=== PATIENT | male | born 1995 | race Caucasian/White ===

== ENCOUNTER 2016-11-14 14:27 | Inpatient (IN) | payer MEDICAID, OTHER ==
[~2016-11-14] VITALS: Ht 170.2 cm; Wt 74.6 kg
[2016-11-14 16:21] LABS: ADD SCAN DIFF NO
[2016-11-14 16:23] LABS: ABNORMAL IP MESSAGE 1; BASOPHIL # 0.1 10^3/ul (0.0-0.1); BASOPHILS % 0.2 % (0.0-2.0); EOSINOPHILS % 0.1 % (0.0-7.0); HEMATOCRIT 38.3 % (42.0-52.0); HEMOGLOBIN 12.9 g/dl (14.0-18.0); LYMPHOCYTES # 1.3 10^3/ul (0.8-2.9); LYMPHOCYTES % 5.6 % (15.0-51.0); MEAN CORPUSCULAR HEMOGLOBIN 28.2 pg (29.0-33.0); MEAN CORPUSCULAR HGB CONC 33.7 g/dl (32.0-37.0); MEAN CORPUSCULAR VOLUME 83.6 fl (82.0-101.0); MEAN PLATELET VOLUME 9.2 fl (7.4-10.4); MONOCYTE # 2.1 10^3/ul (0.3-0.9); MONOCYTES % 9.5 % (0.0-11.0); NEUTROPHIL # 18.9 10^3/ul (1.6-7.5); NEUTROPHILS % 83.8 % (39.0-77.0); PLATELET COUNT 489 10^3/UL (140-415); RED BLOOD COUNT 4.58 10^6/ul (4.70-6.10); RED CELL DISTRIBUTION WIDTH 12.3 % (11.5-14.5); WHITE BLOOD COUNT 22.6 10^3/ul (4.8-10.8)
[2016-11-14 16:28] LABS: ADD UMIC YES; URINE BILIRUBIN (Dip) 2+ (NEGATIVE); URINE BLOOD (Dip) 2+ (NEGATIVE); URINE GLUCOSE (Dip) NEGATIVE (NEGATIVE); URINE KETONES (Dip) TRACE (NEGATIVE); URINE LEUKOCYTE ESTERASE (Dip) NEGATIVE (NEGATIVE); URINE NITRITE (Dip) NEGATIVE (NEGATIVE); URINE TOTAL PROTEIN (Dip) 1+ (NEGATIVE); URINE UROBILINOGEN (Dip) >8.0 E.U./dL (0.1-1.0)
[2016-11-14 16:39] LABS: ALBUMIN 3.8 g/dl (3.3-4.9); ALBUMIN/GLOBULIN RATIO 0.7; BILIRUBIN,INDIRECT 0.3 mg/dl (0-1.1); BILIRUBIN,TOTAL 0.3 mg/dl (0.2-1.3); CALCIUM 9.5 mg/dl (8.4-10.2); CREATININE 0.73 mg/dl (0.61-1.24); POTASSIUM 4.3 mmol/L (3.5-5.1); TOTAL PROTEIN 9.2 g/dl (6.1-8.1)
--- NOTE | 2016-11-14 16:43 | RADRPT ---
PROCEDURE: CT Brain without contrast. CLINICAL INDICATION: Pain, headache TECHNIQUE: Routine CT scan of the brain was performed on a high resolution multi detector scanner without intravenous contrast. One or more of the following dose reduction techniques were used: Auto mated exposure control; Adjustment of the mA and/or kV according to patient size; Use of iterative r econstruction technique. CTDI = 44 mGy. DLP = 630 mGy-cm. COMPARISON: No prior relevant examinations are available for comparison. FINDINGS: Hemorrhage: No evidence of intracranial hemorrhage. Acute ischemic changes: No evidence of acute ischemic changes. Mass effect/Midline shift: None. Parenchymal volume: Within normal limits for age. Ventricular system: Concordant with parenchymal volume. Chronic changes: Parenchymal attenuation is within normal limits. Extracranial soft tissues: Unremarkable. Calvarium: No fractures. Paranasal sinuses: Near complete opacification of the left frontal sinus. Complete opacification of the right frontal sinus. Moderate opacification of bilateral ethmoid air cells. Maxillary sinuses not significantly within the field of view. Mastoid air cells: Visualized mastoid air cells are clear. IMPRESSION: No acute intracranial abnormalities. Normal appearance the brain parenchyma. Opacification of the visualized paranasal sinuses suggestive of sinusitis. RPTAT: AADD .Gianni Jaffe MD, Date Time Electronically viewed and signed by .Gianni Jaffe MD, on 11/14/2016 16:42 .B/
[2016-11-14 16:47] LABS: URINE COLOR AMBER (YELLOW)
[2016-11-14 16:49] LABS: BACTERIA,URINE FEW; ICTOTEST POSITIVE (NEGATIVE); MUCUS,URINE MODERATE; TRANSITIONAL EPI CELLS,URINE FEW
[2016-11-14 16:56] LABS: T3 UPTAKE 43.5 % (23.5-40.5)
[2016-11-14] MEDS ORDERED: IOHEXOL 300MG/ML 150 ML BTL ONE (17:07)
[2016-11-14] MEDS ORDERED: SOD CHLORIDE 0.9% 100 ML ONE (17:07)
[2016-11-14 17:10] LABS: THYROID STIMULATING HORMONE 1.32 MIU/L (0.465-4.680)
[2016-11-14 17:51] LABS: C-REACTIVE PROTEIN 33.8 mg/dl (0.0-0.9)
--- NOTE | 2016-11-14 18:04 | RADRPT ---
PROCEDURE: XR Chest. CLINICAL INDICATION: Pain TECHNIQUE: Single frontal chest x-ray. COMPARISON: None. FINDINGS: The lungs are clear. No focal opacification is seen. The cardiomediastinal silhouette is unremarka ble. The osseous structures are unremarkable. There is an artifact overlapping the left mid parasp inous space. IMPRESSION: 1. There is no acute cardiopulmonary process. RPTAT: HMJB .Glen Brooks MD, MD Date Time Electronically viewed and signed by .Glen Brooks MD, on 11/14/2016 18:04 .B/
--- NOTE | 2016-11-14 18:29 | RADRPT ---
PROCEDURE: CT Chest, Abdomen and Pelvis with contrast. CLINICAL INDICATION: Edema. TECHNIQUE: CT scan of the chest, abdomen, and pelvis with contrast was performed following the unc omplicated intravenous administration of 90 cc of Omnipaque 300 intravenous contrast. Coronal and s agittal reformatted images were obtained from the axial source images. Images were reviewed on a hig h-resolution PACS workstation. CTDI 6 mGy, DLP 416 mGy-cm One or more of the following dose reduction techniques were used: Automated exposure control Adjustment of the mA and/or kV according to patient size. Use of iterative reconstruction technique. COMPARISON: Chest radiograph of the same day FINDINGS: CT chest: The lungs are clear. There is no focal consolidation, pleural effusion, or pneumothorax. The centr al tracheobronchial tree is clear. The visualized thyroid is unremarkable. There is no mediastinal, hilar, or axillary lymphadenopathy . Mildly prominent thymic tissue is visualized within the anterior mediastinum. The aorta and its branches are unremarkable in appearance. The central pulmonary arteries are unrem arkable. The heart size is within normal limits. There is no pericardial effusion. The axillary regions, subpectoral regions, and supraclavicular regions are all unremarkable. A few m ildly prominent lymph nodes are visualized within the bilateral axilla although contain a central fa tty hilum. CT abdomen/pelvis: The right lobe of liver measures about 20.6 cm cranial-caudal, which is prominent. The portal, supe rior mesenteric, splenic veins are patent. The gallbladder is unremarkable. There is no intrahepat ic or extrahepatic biliary ductal dilatation. The spleen, adrenal glands, and pancreas are unremarkable. The bilateral kidneys are unremarkable. There is no nephroureterolithiasis or hydronephrosis. The ureters are normal in course and caliber. The esophagus is unremarkable. The stomach is mildly distended and grossly unremarkable. The small bowel loops are normal in caliber, without evidence for small bowel obstruction. A portion of the sigmoid colon is decompressed. There is no bowel wall thickening or pneumatosis. The appendix may be visualized on coronal image 32 and axial image 211 and unremarkable. There is no free intraperit meza fluid or pneumoperitoneum. The aorta and its branches are unremarkable. There is no mesenteric, retroperitoneal, or pelvic lymphadenopathy. The bladder is mildly distended and grossly unremarkable. The prostate and seminal vesicles are unr emarkable. There is no free fluid within the pelvis. Small subcentimeter inguinal lymph nodes are v isualized. The abdominal and pelvic ramachandran are unremarkable. There are no acute fractures. A few Schmorl's nodes are present within the jvc-ty-jglza thoracic sp ine. RPTAT: HTLT IMPRESSION: 1. Mild to moderate hepatomegaly. 2. Few small Schmorl's nodes within the dgt-ca-xbhag thoracic spine. 3. No discrete mass, significant lymphadenopathy, or a focal acute inflammatory process. No ascite s. .Priscilla Pryor MD, MD Date Time Electronically viewed and signed by .Priscilla Pryor MD, on 11/14/2016 18:29 .T/
[2016-11-14] MEDS ORDERED: SOD CHLORIDE 0.9% 1,000 ML IV ONE ×2 (18:54→19:30)
[2016-11-14] MEDS ORDERED: VANCOMYCIN 1 GM (PMX) 250 ML IVPB SCH (19:00)
[2016-11-14] MEDS ORDERED: CEFTRIAXONE 1 GM/50 ML (PMX) 50 ML IVPB ONE (19:00)
[2016-11-14] MEDS ORDERED: ACETAMINOPHEN 325 MG TAB PO ONE (19:00)
--- NOTE | 2016-11-14 19:44 | ERA ---
ER Documentation Chief Complaint Date/Time DATE: 11/14/16 TIME: 19:37 Chief Complaint pt bib cousin with c/o swollen hands, unk cause HPI 21-year-old male presents with cousin for increasingly swollen hands. There is been no recent trauma to the hands and no known insect bite but the hands have been increasingly swelling have been hot. Symptoms began ROS All systems reviewed and are negative except as per history of present illness. Allergies Allergies: Coded Allergies: No Known Allergies (Verified Allergy, Unknown, 11/14/16) PMhx/Soc Medical and Surgical Hx: pt denies Surgical Hx Hx Cardiac Disorders: Yes (cardiac problems) Hx Psychiatric Problems: No Hx Miscellaneous Medical Probl: No Hx Alcohol Use: No Hx Substance Use: No Hx Tobacco Use: No Smoking Status: Never smoker Physical Exam Vitals Vital Signs Date Time Temp Pulse Resp B/P Pulse Ox O2 Delivery O2 Flow Rate FiO2 11/14/16 19:18 101.0 114 19 139/101 90 Room Air 11/14/16 18:40 104.0 11/14/16 14:31 98.3 64 16 134/78 98 Physical Exam Const: [] Head: Atraumatic Eyes: Normal Conjunctiva ENT: Normal External Ears, Nose and Mouth. Neck: Full range of motion..~ No meningismus. Resp: Clear to auscultation bilaterally Cardio: Regular rate and rhythm, no murmurs Abd: Soft, non tender, non distended. Normal bowel sounds Skin: No petechiae or rashes Back: No midline or flank tenderness Ext: No cyanosis, or edema Neur: Awake and alert Psych: Normal Mood and Affect Result Diagram: 11/14/16 1601 11/14/16 1601 Results 24 hrs Laboratory Tests Test 11/14/16 16:01 11/14/16 16:07 11/14/16 17:06 White Blood Count 22.610^3/ul Red Blood Count 4.5810^6/ul Hemoglobin 12.9g/dl Hematocrit 38.3% Mean Corpuscular Volume 83.6fl Mean Corpuscular Hemoglobin 28.2pg Mean Corpuscular Hemoglobin Concent 33.7g/dl Red Cell Distribution Width 12.3% Platelet Count 44466^3/UL Mean Platelet Volume 9.2fl Neutrophils % 83.8% Lymphocytes % 5.6% Monocytes % 9.5% Eosinophils % 0.1% Basophils % 0.2% Nucleated Red Blood Cells % 0.0/100WBC Neutrophils # 18.910^3/ul Lymphocytes # 1.310^3/ul Monocytes # 2.110^3/ul Eosinophils # 0.010^3/ul Basophils # 0.110^3/ul Nucleated Red Blood Cells # 0.010^3/ul Erythrocyte Sedimentation Rate 110mm/Hr Sodium Level 138mmol/L Potassium Level 4.3mmol/L Chloride Level 96mmol/L Carbon Dioxide Level 27mmol/L Anion Gap 19 Blood Urea Nitrogen 13mg/dl Creatinine 0.73mg/dl Glucose Level 124mg/dl Calcium Level 9.5mg/dl Total Bilirubin 0.3mg/dl Direct Bilirubin 0.00mg/dl Indirect Bilirubin 0.3mg/dl Aspartate Amino Transf (AST/SGOT) 27IU/L Alanine Aminotransferase (ALT/SGPT) 52IU/L Alkaline Phosphatase 205IU/L C-Reactive Protein 33.8mg/dl Total Protein 9.2g/dl Albumin 3.8g/dl Globulin 5.40g/dl Albumin/Globulin Ratio 0.70 Lipase 32U/L Thyroid Stimulating Hormone (TSH) 1.320MIU/L Free Thyroxine Index 4.35ug/ml Thyroxine (T4) 10.0ug/dl Triiodothyronine (T3) Uptake 43.5% Monoscreen Negative Urine Color EVA Urine Clarity SLIGHTLY CLOUDY Urine pH 5.5 Urine Specific [place] 1.020 Urine Ketones TRACE Urine Nitrite NEGATIVE Urine Bilirubin 2+ Urine Ictotest POSITIVE Urine Urobilinogen >8.0 E.U./dL Urine Leukocyte Esterase NEGATIVE Urine Microscopic RBC 10-25/HPF Urine Microscopic WBC 0-2/HPF Urine Transitional Epithelial Cells FEW Urine Bacteria FEW Urine Mucus MODERATE Urine Hemoglobin 2+ Urine Glucose NEGATIVE% Urine Total Protein 1+ Lactic Acid Level 1.1mmol/L Current Medications Medications (Trade) Dose Ordered Sig/Regi Route PRN Reason Start Time Stop Time Status Last Admin Dose Admin IV Flush 10 ml 10 ml STK-MED ONCE .ROUTE 11/14/16 17:07 11/14/16 17:08 DC 11/14/16 17:37 Sodium Chloride (NS) 100 ml @ ud STK-MED ONCE .ROUTE 11/14/16 17:07 5/28/17 17:08 DC 11/14/16 17:37 Iohexol (Omnipaque 300mg/ ml) 150 ml STK-MED ONCE .ROUTE 11/14/16 17:07 11/14/16 17:08 DC 11/14/16 17:38 Acetaminophen 650 mg 650 mg ONCE ONCE PO 11/14/16 19:00 11/14/16 19:01 DC 11/14/16 18:47 Ceftriaxone Sodium 50 ml @ 100 mls/hr ONCE ONCE IVPB 11/14/16 19:00 11/14/16 19:29 DC 11/14/16 19:10 Vancomycin HCl 250 ml @ 125 mls/hr ONCE IVPB 11/14/16 19:00 11/14/16 20:59 DC 11/14/16 20:24 Sodium Chloride 1,000 ml @ 0 mls/hr Q0M ONCE IV 11/14/16 18:54 11/14/16 18:59 DC 11/14/16 19:10 Sodium Chloride (NS) 1,000 ml @ 1,000 mls/hr Q1H ONCE IV 11/14/16 19:30 11/14/16 20:29 DC 11/14/16 20:30 Procedures/MDM Sepsis secondary to bilateral hand cellulitis apparently. Patient also had an episode of desaturation. Sed rate is significantly elevated. Patient was given 2 L of normal saline to complete 36 kg of IV fluid. Diagnosis of sepsis was not made until the temperature was rechecked the patient had a fever. The first temperature was taken with the tympanic membrane which in my experience are unreliable. Patient also has a very highly elevated white count. Strangely , he is feeling very well. He has minimal pain and is not short of breath. Extensive workup was performed to look for other possible abnormalities because this is an atypical case. Patient is being admitted to Dr. lundberg. He requests that I call Dr. Fisher. I did call Dr. Fisher regarding bilateral hand cellulitis and agrees to be a consult on this patient. Critical care time: 35 minutes: This includes treatment of significant cellulitis with sepsis, very careful fluid administration, early antibiotic administration was diagnosis of sepsis have been made, multiple visits the patient's bedside to reassess status, discussion with labor delivery specialist, discussion with admitting doctor, chart review. This does not include any billable procedures. Left hand x-ray interpretation: Marked soft tissue swelling with evidence of psoriatic arthritis. No fracture dislocation. Right hand x-ray. Marked soft tissue swelling without evidence of fracture or dislocation Chest x-ray interpretation: I see no acute process, no infiltrates, no widened mediastinum, no pneumothorax, no fractures CT head interpretation: I see no acute process, no hemorrhage no mass-effect or midline shift no skull fractures CT abdomen pelvis interpretation: I see no acute process, no obstruction, no free air, no abnormal fat stranding, no fractures Departure Diagnosis: Primary Impression: Cellulitis of hand Additional Impressions: Sepsis Fever Leukocytosis Psoriatic arthritis Condition: Serious LOUISA MASTERSON DO November 14, 2016 19:44
[2016-11-14] MEDS ORDERED: ONDANSETRON 4 MG INJ IV PRN ×2 (20:00→22:00)
[2016-11-14] MEDS ORDERED: ACETAMINOPHEN 325 MG TAB PO PRN (20:00)
[2016-11-14 20:24] VITALS: TEMP 100
[2016-11-14 20:51] VITALS: PULSE 107
[2016-11-14 21:15] VITALS: BP 117/58; PULSE 101; RESP 20
--- NOTE | 2016-11-14 21:37 | RADRPT ---
PROCEDURE: X-ray left hand CLINICAL INDICATION: Swelling and sepsis. TECHNIQUE: 3 views left hand COMPARISON: None FINDINGS: Deformity at the third PIP joint with chronic remodelling at the base of the middle phalanx and dest ruction of the articular proximal third middle phalanx. Differential considerations include pencil i n cup deformity of psoriatic arthropathy. Remaining osseous structures are without acute fracture di slocation. There may be resorption of the tuft of the fourth finger of the left hand, although this is suboptim ally visualized. Evaluation of the fingers is limited secondary to flexion. Soft tissue swelling over the fingers, greater at the third finger. IMPRESSION: 1. Chronic changes at the base of the third proximal phalanx with widening, remodelling and destruc tion of the articular surface. 2. Findings are compatible with sequela of psoriatic arthropathy. RPTAT: [facility] Physician Thaddeus Date Time Electronically viewed and signed by Physician Thaddeus on 11/14/2016 21:36 RS/
--- NOTE | 2016-11-14 21:39 | RADRPT ---
PROCEDURE: X-ray right hand CLINICAL INDICATION: Swelling and sepsis. TECHNIQUE: 3 views right hand COMPARISON: None FINDINGS: No acute fracture dislocation. No evident lrykza-mz-wpe deformities or erosions seen in the left moya d. Soft tissue swelling over the proximal and mid second digit of the right hand. Digit swelling can b e associated with psoriatic arthropathy. IMPRESSION: 1. Soft tissue swelling over the proximal and mid second digit of the right hand. 2. No acute fracture. 3. No evident khmvja-yn-fuh deformity, as noted in the left hand. RPTAT: [facility] Physician Thaddeus Date Time Electronically viewed and signed by Physician Thaddeus on 11/14/2016 21:38 RS/
[2016-11-14 21:47] VITALS: Ht 170.2 cm; Wt 74.6 kg
[2016-11-14] MEDS ORDERED: VANCOMYCIN IV PER PHARMACY XX SCH (22:00)
[2016-11-14] MEDS ORDERED: morphine 4 MG/ML VIAL IV PRN (22:00)
[2016-11-14 23:00] LABS: URINE BILIRUBIN (Dip) 1+ (NEGATIVE); URINE BLOOD (Dip) 2+ (NEGATIVE); URINE COLOR DK. YELLOW (YELLOW); URINE GLUCOSE (Dip) NEGATIVE (NEGATIVE); URINE KETONES (Dip) NEGATIVE (NEGATIVE); URINE LEUKOCYTE ESTERASE (Dip) NEGATIVE (NEGATIVE); URINE NITRITE (Dip) NEGATIVE (NEGATIVE); URINE TOTAL PROTEIN (Dip) 1+ (NEGATIVE); URINE UROBILINOGEN (Dip) 4.0 E.U./dL (0.1-1.0)
[2016-11-14 23:05] LABS: ADD UMIC SL HAZY
[2016-11-14 23:09] LABS: ICTOTEST NEGATIVE (NEGATIVE)
[2016-11-14 23:11] LABS: BACTERIA,URINE RARE; SQUAMOUS EPITHELIAL CELL,UR RARE
[2016-11-14] MEDS: PIPER-TAZO 3.375 GM IV (PMX) 100 ML IVPB SCH (23:52)
[2016-11-15] VITALS (15 sets, daily range): BP systolic 102–137; BP diastolic 55–81; PULSE 88–130; RESP 16–21
[2016-11-15] MEDS: VANCOMYCIN 1 GM in NS 250 ML IVPB SCH ×2 (02:09→10:08)
[2016-11-15] MEDS: PIPER-TAZO 3.375 GM IV (PMX) 100 ML IVPB SCH ×2 (05:25→12:44)
--- NOTE | 2016-11-15 05:49 | HP ---
DATE OF ADMISSION: 11/14/2016 CHIEF COMPLAINT: Swollen hands and pain. HISTORY OF PRESENT ILLNESS: The patient is a 21-year-old male who is hard of hearing in both ears who presented to the emergency department with swollen hands. The swelling has been progressively getting worse over a a one year period and has been warm to touch. It has been itchy and as a result, he developed scars from scratching. He denied any trauma/injury to both hands or insect bites. He moved from [facility] to a year ago and this problem started [place] He speaks very limited urugu[place], but his cousin at bedside was translating. Cousin said he was taken to a clinic here once before, but said nothing was done. He also has bumps/papular lesions x 3 years on his lower extremities, which are itchy and somehow tender. He denied any chest pains, shortness of breath, fever, chills, nausea, vomiting, abdominal pain, or urinary symptoms. When he presented to the ER, blood pressure was 134/78, heart rate 64, respiratory rate 16, temperature 98.3, oxygen saturation 98% on room air. Within 4 hours, he was febrile with a temperature of 104 and tachycardic with a heart rate as high as 114. Labs show a WBC of 22.6, hemoglobin 12.9, platelet count 489. Alkaline phosphatase 205. C-reactive protein almost 34. ESR 110. X-ray of the hands shows soft tissue swelling over the proximal and mid second digits of the right hand and deformity of the third PIP joint with chronic remodeling at the base of the middle phalanx and destruction of the articular proximal third middle phalanx with widening, remodeling and destruction of the articular surface of the left hand, findings compatible with sequela of psoriatic arthropathy. Although suboptimally visualized, there may also be resorption of the tuft of the fourth finger of the left hand, but evaluation of the fingers was limited secondary to flexion. Chest x-ray: No acute process. Brain CT shows opacification of the visualized paranasal sinus suggestive of sinusitis. CT abdomen and pelvis was done which showed mild to moderate hepatomegaly, few small Schmorl's nodes within the mid to lower thoracic spine. Otherwise, no discrete mass, significant lymphadenopathy, or focal acute inflammatory process was seen, and no ascites. The patient received IV fluids and was given a dose of ceftriaxone while in the ER. REVIEW OF SYSTEMS: A 12-point review was performed and negative except as mentioned in HPI. PAST MEDICAL HISTORY: As per HPI. PAST SURGICAL HISTORY: Denies. SOCIAL HISTORY: Denies history of tobacco, alcohol, or illicit drug use. ALLERGIES: NO KNOWN DRUG ALLERGIES. HOME MEDICATIONS: None. PHYSICAL EXAMINATION: VITAL SIGNS: Blood pressure 117/58, heart rate 101, respiratory rate 20, temperature 99.3, oxygen saturation 100% on 2 liters. GENERAL: No acute distress, answering questions appropriately. HEENT: No obvious head deformity. Pupils are reactive to light. Extraocular muscles intact. CARDIOVASCULAR: Tachycardic, regular rhythm. LUNGS: Clear. ABDOMEN: Soft, nontender, nondistended. Positive bowel sounds. EXTREMITIES: No lower extremity edema. There is swelling of bilateral hands which are warm to touch. IMAGING: X-ray of hands, chest x-ray, CT abdomen and pelvis, and brain CT with results as mentioned in the HPI. IMPRESSION: 1. Bilateral hands swellings and cellulitis of unknown etiology. 2. Sepsis as evidenced by fever, leukocytosis, and tachycardia, secondary to above. 3. Elevated alkaline phosphatase, likely the sequela of his swollen hands with possible bone inflammatory process. PLAN: He will be placed on broad spectrum antibiotic. We will follow up on culture results given the presentation of sepsis. Dr. Fisher, the on-call ortho surgeon, has been consulted by the ER physician, and we will follow up on his recommendation. I will leave the decision up to him about obtaining additional imaging like MRI. He will provide pain medications as needed. The patient's etiology of his swollen hands could be from psoriatic arthropathy process, and as such, we may need to place a hematology consult. We will order SALOME, RF (rheumatoid factor), and anti-CCP. Additional workup based on clinical course. Dictated By: KANDICE GREER/LAURY Conf#: [id number] DID#: [id number] BARBIE
[2016-11-15] MEDS: ACETAMINOPHEN 325 MG TAB PO PRN ×2 (06:25→16:00)
[2016-11-15 07:01] LABS: ADD SCAN DIFF NO
[2016-11-15 07:13] LABS: ABNORMAL IP MESSAGE 1; BASOPHILS % 0.1 % (0.0-2.0); EOSINOPHILS # 0.1 10^3/ul (0.0-0.5); EOSINOPHILS % 0.4 % (0.0-7.0); HEMATOCRIT 36.4 % (42.0-52.0); LYMPHOCYTES % 5.2 % (15.0-51.0); MEAN CORPUSCULAR HEMOGLOBIN 27.9 pg (29.0-33.0); MEAN CORPUSCULAR VOLUME 84.7 fl (82.0-101.0); MEAN PLATELET VOLUME 8.8 fl (7.4-10.4); MONOCYTE # 1.6 10^3/ul (0.3-0.9); MONOCYTES % 8.1 % (0.0-11.0); NEUTROPHIL # 17.1 10^3/ul (1.6-7.5); NEUTROPHILS % 85.2 % (39.0-77.0); PLATELET COUNT 447 10^3/UL (140-415); RED CELL DISTRIBUTION WIDTH 12.7 % (11.5-14.5); WHITE BLOOD COUNT 20.1 10^3/ul (4.8-10.8)
[2016-11-15 07:36] LABS: ALBUMIN 3.3 g/dl (3.3-4.9); ALBUMIN/GLOBULIN RATIO 0.71; BILIRUBIN,INDIRECT 0.2 mg/dl (0-1.1); BILIRUBIN,TOTAL 0.2 mg/dl (0.2-1.3); CALCIUM 8.8 mg/dl (8.4-10.2); CREATININE 0.66 mg/dl (0.61-1.24); MAGNESIUM 1.9 mg/dl (1.7-2.5); PHOSPHORUS 3.7 mg/dl (2.5-4.9); POTASSIUM 3.9 mmol/L (3.5-5.1); TOTAL PROTEIN 7.9 g/dl (6.1-8.1)
--- NOTE | 2016-11-15 14:32 | PN ---
Date/Time of Note Date/Time of Note DATE: 11/15/16 TIME: 14:26 Assessment/Plan VTE Prophylaxis VTE Prophylaxis Intervention: heparin Lines/Catheters IV [facility] Peripheral IV Urinary Cath still in place: No Assessment/Plan Assessment/Plan 21 yo M with no known pmhx presents with several weeks of progresive bl finger/ hand joint pain and swelling. Imaging and clinical course suggestive of psoriatic arthritis v other rheumatologic condition. Pt with leukocytosis, suspect reactive. Pt also with low grade temp on admission which actually worsened with initiation of antimicrobials which is not consistent with a primarily infectious process PLAN rheum labs in process (CRP/SALOME/RF/CCP, ESR already returned elevated) rheum eval social work consult given pt does not currently have health insurance general diet S[facility] Subjective 24 Hr Interval Summary Free Text/Dictation Pt seen this afternoon with his family member at bedside who served as stereo map plotter operator. Pt reports hands have been swollen for several weeks, started with just right then left became involved as well. No pain when he holds his hands still Denies any visual changes, swelling or pain of other joints Exam/Review of Systems Vital Signs Vitals Vital Signs Date Time Temp Pulse Resp B/P Pulse Ox O2 Delivery O2 Flow Rate FiO2 11/15/16 12:18 88 11/15/16 11:39 98.5 20 123/80 100 11/15/16 08:00 Nasal Cannula 2.0 Intake and Output 11/14/16 11/14/16 11/15/16 15:00 23:00 07:00 Intake Total 1050 ml 950 ml Balance 1050 ml 950 ml Exam NAD, sitting up in bed MSK exam notabvle for sig mod swelling/sausage digit deformity of L hand fingers and mild swelling in R fingers, +tenosynovitis and DIPs/PIPs/MCPs bl. + tenosynovitis R elbow. None in left elbow. No rashes noted over elbow extensor surfaces. No erythema LEs with no tenosynovitis of toes/ankles/knees. +several 2 cm erythematous nodules scattered over LEs Results Result Diagram: 11/15/16 0635 11/15/16 0615 Results 24 hrs Laboratory Tests Test 11/14/16 16:01 11/14/16 16:07 11/14/16 17:06 11/14/16 21:55 White Blood Count 22.6 H Red Blood Count 4.58 L Hemoglobin 12.9 L Hematocrit 38.3 L Mean Corpuscular Volume 83.6 Mean Corpuscular Hemoglobin 28.2 L Mean Corpuscular Hemoglobin Concent 33.7 Red Cell Distribution Width 12.3 Platelet Count 489 H Mean Platelet Volume 9.2 Neutrophils % 83.8 H Lymphocytes % 5.6 L Monocytes % 9.5 Eosinophils % 0.1 Basophils % 0.2 Nucleated Red Blood Cells % 0.0 Neutrophils # 18.9 H Lymphocytes # 1.3 Monocytes # 2.1 H Eosinophils # 0.0 Basophils # 0.1 Nucleated Red Blood Cells # 0.0 Erythrocyte Sedimentation Rate 110 H Sodium Level 138 Potassium Level 4.3 Chloride Level 96 L Carbon Dioxide Level 27 Anion Gap 19 H Blood Urea Nitrogen 13 Creatinine 0.73 Glucose Level 124 Calcium Level 9.5 Total Bilirubin 0.3 Direct Bilirubin 0.00 Indirect Bilirubin 0.3 Aspartate Amino Transf (AST/SGOT) 27 Alanine Aminotransferase (ALT/SGPT) 52 Alkaline Phosphatase 205 H C-Reactive Protein 33.8 H Total Protein 9.2 H Albumin 3.8 Globulin 5.40 H Albumin/Globulin Ratio 0.70 Lipase 32 Thyroid Stimulating Hormone (TSH) 1.320 Free Thyroxine Index 4.35 H Thyroxine (T4) 10.0 Triiodothyronine (T3) Uptake 43.5 H Monoscreen Negative Urine Color EVA DK. YELLOW Urine Clarity SLIGHTLY CLOUDY CLEAR Urine pH 5.5 6.5 Urine Specific [place] 1.020 <=1.005 L Urine Ketones TRACE NEGATIVE Urine Nitrite NEGATIVE NEGATIVE Urine Bilirubin 2+ H 1+ H Urine Ictotest POSITIVE NEGATIVE Urine Urobilinogen >8.0 E.U./dL H 4.0 E.U./dL H Urine Leukocyte Esterase NEGATIVE NEGATIVE Urine Microscopic RBC 10-25 2-5 Urine Microscopic WBC 0-2 NONE SEEN Urine Transitional Epithelial Cells FEW Urine Bacteria FEW RARE Urine Mucus MODERATE Urine Hemoglobin 2+ H 2+ H Urine Glucose NEGATIVE NEGATIVE Urine Total Protein 1+ H 1+ H Lactic Acid Level 1.1 1.2 Urine Squamous Epithelial Cells RARE Test 11/15/16 00:45 11/15/16 06:15 11/15/16 06:35 Lactic Acid Level 1.0 Sodium Level 138 Potassium Level 3.9 Chloride Level 100 Carbon Dioxide Level 24 Anion Gap 18 H Blood Urea Nitrogen 10 Creatinine 0.66 Glucose Level 131 Calcium Level 8.8 Phosphorus Level 3.7 Magnesium Level 1.9 Total Bilirubin 0.2 Direct Bilirubin 0.00 Indirect Bilirubin 0.2 Aspartate Amino Transf (AST/SGOT) 30 Alanine Aminotransferase (ALT/SGPT) 47 Alkaline Phosphatase 190 H Total Protein 7.9 # Albumin 3.3 Globulin 4.60 H Albumin/Globulin Ratio 0.71 White Blood Count 20.1 H Red Blood Count 4.30 L Hemoglobin 12.0 L Hematocrit 36.4 L Mean Corpuscular Volume 84.7 Mean Corpuscular Hemoglobin 27.9 L Mean Corpuscular Hemoglobin Concent 33.0 Red Cell Distribution Width 12.7 Platelet Count 447 H Mean Platelet Volume 8.8 Neutrophils % 85.2 H Lymphocytes % 5.2 L Monocytes % 8.1 Eosinophils % 0.4 Basophils % 0.1 Nucleated Red Blood Cells % 0.0 Neutrophils # 17.1 H Lymphocytes # 1.0 Monocytes # 1.6 H Eosinophils # 0.1 Basophils # 0.0 Nucleated Red Blood Cells # 0.0 Medications Medications Current Medications Ondansetron HCl (Zofran Inj) 4 mg Q6H PRN IV NAUSEA AND/OR VOMITING; Start at 22:00 Acetaminophen (Tylenol Tab) 650 mg Q6H PRN PO PAIN AND OR ELEVATED TEMP Last administered on 11/15/16 06:25; Admin Dose 650 MG; Start 11/14/16 at 22:00 Morphine Sulfate (morphine) 3 mg Q4H PRN IV PAIN; Start 11/14/16 at 22:00 CAROLINA YANEZ MD November 15, 2016 14:32
--- NOTE | 2016-11-15 21:10 | CONS ---
DATE OF ADMISSION: 11/14/2016 DATE OF CONSULTATION: 11/15/2016 TYPE OF CONSULTATION: Orthopedic surgical. HISTORY OF PRESENT ILLNESS: The patient is a 21-year-old male, a resident of [place] who has been in [facility] for last 1 year. He was admitted on 11/14/2016 when he was brought into the emergency room comp laining of swelling involving both hands, especially involving fingers. He developed this swelling of the fingers, especially involving index finger and middle finger and ring finger, starting from a bout a month ago without any memorable trauma. According to available history, he was having itchin g, and because of itching, he was scratching excessively, and they felt that that might be the reaso n for his swelling according to the family members. There is also a history of having bump and papu lar lesion in his lower extremity in the past. There also was a history of pain involving the knee joint in the past. At the time of his admission, there was a considerable leukocytosis with a WBC c ount of 22.6 along with a temperature of 101.0, and C-reactive protein was high with 34, and sedimen tation rate was 110. PHYSICAL EXAMINATION: My examination revealed a diffuse swelling and thickness of fingers, especial ly index finger and middle finger and ring finger of both hands. Even though there was enlargement of his fingers, there were no signs of acute pyogenic process such as redness, acute tenderness or i ncreased warmth. He was able to move his fingers in spite of this thickening and enlargement. X-ra ys of the fingers, especially the left hand, showing chronic changes in the proximal interphalangeal joint of the 3rd finger with widening and remodeling of the proximal end of the middle phalanx with the distal end of the proximal phalanx inside the widened area, showing so-called hdbykf-yy-byi-cup finding. There was some thickening and hypertrophic changes of the skeletal structures, radiologic report mentioning findings compatible with sequela of psoriatic arthropathy. The x-rays of the rig ht hand also are showing similar changes with thickening of the phalanx similar to the left hand wit hout so-called xwunyf-ov-akk-cup findings. 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 No signs of acute pyogenic process at all. RECOMMENDATIONS FOR MANAGEMENT: 1. Consult ____. 2. He may need a referral to major medical center for higher level of care, and this can be done as an outpatient after his discharge from this facility. Dictated By: ALMITA VALERIO/LAURY Conf#: [id number] DID#: [id number]
[2016-11-15] MEDS: NAPROXEN 500 MG TAB PO SCH (21:18)
[2016-11-15] MEDS: HEPARIN 5,000 UNIT/0.5 ML VIAL SC SCH (21:19)
[2016-11-16] VITALS (7 sets, daily range): BP systolic 111–136; BP diastolic 66–67; PULSE 60–90; RESP 18–20
[2016-11-16] MEDS: HEPARIN 5,000 UNIT/0.5 ML VIAL SC SCH (06:11)
[2016-11-16] MEDS: NAPROXEN 500 MG TAB PO SCH (08:47)
--- NOTE | 2016-11-16 11:27 | PDOCDIS ---
Discharge Instructions CONDITION Patient Condition: Good HOME CARE INSTRUCTIONS: Diet Instructions: RegularSpecial Diet: REGULAR DIET ACTIVITY: Activity Restrictions: No Restrictions REFERRALS Other Referrals Please refer to the resources provided by the older adult social work specialist to get coordinated with medical care through [facility]. When you are able to see a new primary care physician, please ask for a referral to a combination presser/joint specialist. If your condition worsens, consider presenting to the ER at [facility] or [facility]. CAROLINA YANEZ MD November 16, 2016 11:27
[2016-11-16] MEDS ORDERED: NAPR-260 PO (11:30)
--- NOTE | 2016-11-16 11:40 | DS ---
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 X-ray left hand FINDINGS: Deformity at the third PIP joint with chronic remodelling at the base of the middle phalanx and destruction of the articular proximal third middle phalanx. Differential considerations include pencil in cup deformity of psoriatic arthropathy. Remaining osseous structures are without acute fracture dislocation. There may be resorption of the tuft of the fourth finger of the left hand, although this is suboptimally visualized. Evaluation of the fingers is limited secondary to flexion. Soft tissue swelling over the fingers, greater at the third finger. IMPRESSION: 1. Chronic changes at the base of the third proximal phalanx with widening, remodelling and destruction of the articular surface. 2. Findings are compatible with sequela of psoriatic arthropathy. PROCEDURE: X-ray right hand FINDINGS: No acute fracture dislocation. No evident lnwhrr-es-osj deformities or erosions seen in the left hand. Soft tissue swelling over the proximal and mid second digit of the right hand. Digit swelling can be associated with psoriatic arthropathy. IMPRESSION: 1. Soft tissue swelling over the proximal and mid second digit of the right hand. 2. No acute fracture. 3. No evident tdznwg-bu-tqq deformity, as noted in the left hand. Hx of Present Illness The patient is a 21-year-old male who is hard of hearing in both ears who presented to the emergency department with swollen hands. The swelling has been progressively getting worse over a a one year period and has been warm to touch. It has been itchy and as a result, he developed scars from scratching. He denied any trauma/injury to both hands or insect bites. He moved from [facility] to a year ago and this problem started [place] He speaks very limited can[place], but his cousin at bedside was translating. Cousin said he was taken to a clinic here once before, but said nothing was done. He also has bumps/papular lesions x 3 years on his lower extremities, which are itchy and somehow tender. He denied any chest pains, shortness of breath, fever , chills, nausea, vomiting, abdominal pain, or urinary symptoms. When he presented to the ER, blood pressure was 134/78, heart rate 64, respiratory rate 16, temperature 98.3, oxygen saturation 98% on room air. Within 4 hours, he was febrile with a temperature of 104 and tachycardic with a heart rate as high as 114. Labs show a WBC of 22.6, hemoglobin 12.9, platelet count 489. Alkaline phosphatase 205. C-reactive protein almost 34. ESR 110. X-ray of the hands shows soft tissue swelling over the proximal and mid second digits of the right hand and deformity of the third PIP joint with chronic remodeling at the base of the middle phalanx and destruction of the articular proximal third middle phalanx with widening, remodeling and destruction of the articular surface of the left hand, findings compatible with sequela of psoriatic arthropathy. Although suboptimally visualized, there may also be resorption of the tuft of the fourth finger of the left hand, but evaluation of the fingers was limited secondary to flexion. Chest x-ray: No acute process. Brain CT shows opacification of the visualized paranasal sinus suggestive of sinusitis. CT abdomen and pelvis was done which showed mild to moderate hepatomegaly, few small Schmorl's nodes within the mid to lower thoracic spine. Otherwise, no discrete mass, significant lymphadenopathy, or focal acute inflammatory process was seen, and no ascites. The patient received IV fluids and was given a dose of ceftriaxone while in the ER. Hospital Course Clinical scenario more consistent with rheumatologic process than infectious process thus antibiotics were stopped. Pt afebrile x 24 hours at time of discharge. Unfortunately, as pt uninsured he was unable to be seen by heating element builder in the hospital. Pt seen by orthopedics which also advised rheumatologic evaluation. Pt started on high dose NSAIDs and advised to follow up with a heating element builder. Home Meds Active Scripts Naproxen* (Naproxen*) 500 Mg Tablet, 500 MG PO BID WITH MEALS for 7 Days, #14 TAB Prov:CAROLINA YANEZ MD 11/16/16 Primary Care Provider Care Physician No Primary Time spent on discharge: > 30 minutes Pending Labs Laboratory Tests Test 11/16/16 06:55 C-Reactive Protein 23.1mg/dl (0.0-0.9) CAROLINA YANEZ MD November 16, 2016 11:40 CAROLINA YANEZ MD November 16, 2016 11:40
[2016-11-16] MEDS ORDERED: NAPR-688 PO (11:53)
[2016-11-17 13:57] LABS: ANA SCREEN NEGATIVE (NEGATIVE)
[2016-11-17 17:50] LABS: CYCLIC CITRULLINATED PEP IGG <16 UNITS
== END 2016-11-16 12:42 | disposition home or self-care (01) | DRG 546 ==
LOC: FTE 14:27 → MS4 19:34
PROVIDERS: ADMIT Internal Medicine; ATTEND Internal Medicine
DX: L40.50 Arthropathic psoriasis, unspecified (principal); L03.114 Cellulitis of left upper limb; L03.113 Cellulitis of right upper limb; R74.8 Abnormal levels of other serum enzymes; H91.93 Unspecified hearing loss, bilateral; R79.82 Elevated C-reactive protein (CRP)
CPT/HCPCS: 36415; 70450; 71010; 71260; 74177; 80053; 81001; 83605; 83690; 83735; 84100; 84436; 84443; 84479; 85025; 85651; 86038; 86140; 86200; 86308; 86430; 87040; 87086; 93005; 96365; 96375; J0696; J1644; J2543; J3370; J7030; Q9967

== ENCOUNTER 2017-02-04 09:18 | Emergency (ER) | payer MEDICAID ==
[~2017-02-04] VITALS: Wt 74.0 kg
[~2017-02-04 09:18] MED LIST: NAPR-260 PO; NAPR-688 PO
[2017-02-04] MEDS ORDERED: predniSONE 20 MG TAB PO ONE (10:00)
[2017-02-04] MEDS ORDERED: BEN25 PO (10:17)
[2017-02-04] MEDS ORDERED: PRED20TA PO (10:17)
[2017-02-04] MEDS ORDERED: IBUP-1542 PO (10:19)
--- NOTE | 2017-02-04 15:42 | ERD ---
ER Documentation Chief Complaint Date/Time DATE: 02/04/17 TIME: 15:35 Chief Complaint HIVES ALL OVER, ONSET 2 DAYS, NO SOB, FEVER AT HOME HPI This 21-year-old male who presents to the emergency department today with his cousin for complaints of a rash that developed all over his body over the past couple of days. Through translation of the cousin patient had some leg pain 2 days ago with no rash and then later the rash developed and has spread up his body. States that he had a fever last night. States he took Tylenol for pain. Denies any new foods, new detergents or any new medications. Denies any chest pain or shortness of breath or difficulty breathing ROS All systems reviewed and are negative except as per history of present illness. Medications Home Meds Active Scripts Ibuprofen* (Motrin*) 600 Mg Tab, 600 MG PO Q6, #30 TAB Prov:GA BOOGIE PA-C 02/04/17 Diphenhydramine Hcl* (Benadryl*) 25 Mg Cap, 25 MG PO Q6, #30 CAP Prov:GA BOOGIE PA-C 02/04/17 Prednisone* (Prednisone*) 20 Mg Tab, 40 MG PO DAILY for 4 Days, TAB Prov:GA BOOGIE PA-C 02/04/17 Naproxen* (Naproxen*) 500 Mg Tablet, 500 MG PO BID WITH MEALS for 7 Days, #14 TAB Prov:CAROLINA YANEZ MD 11/16/16 Allergies Allergies: Coded Allergies: No Known Allergies (Verified Allergy, Unknown, 11/14/16) PMhx/Soc History of Surgery: No Anesthesia Reaction: No Hx Neurological Disorder: No Hx Respiratory Disorders: No Hx Cardiac Disorders: No Hx Psychiatric Problems: No Hx Miscellaneous Medical Probl: No Hx Alcohol Use: No Hx Substance Use: No Hx Tobacco Use: No Smoking Status: Never smoker Physical Exam Vitals Vital Signs Date Time Temp Pulse Resp B/P Pulse Ox O2 Delivery O2 Flow Rate FiO2 02/04/17 09:23 99.9 116 17 117/68 98 Physical Exam Const: No acute distress Head: Atraumatic Eyes: Normal Conjunctiva ENT: Normal External Ears, Nose and Mouth. Neck: Full range of motion..~ No meningismus. Resp: Clear to auscultation bilaterally Cardio: Regular rate and rhythm, no murmurs Abd: Soft, non tender, non distended. Normal bowel sounds Skin: Diffuse erythematous nodules and raised lesions with negative Nikolsky sign diffusely over bilateral extremities, abdomen and back. Back: No midline or flank tenderness Ext: No cyanosis, or edema Neur: Awake and alert Psych: Normal Mood and Affect Results 24 hrs Current Medications Medications (Trade) Dose Ordered Sig/Regi Route PRN Reason Start Time Stop Time Status Last Admin Dose Admin Prednisone (Prednisone) 60 mg ONCE ONCE PO 02/04/17 10:00 02/04/17 10:01 DC 02/04/17 10:20 Procedures/MDM This is a 21-year-old male who presents to the emergency department today for a rash that started 2 days ago as well as lower extremity pain and fevers. Upon review of patient's medical records patient was seen here previously in October of this year for bilateral hand swelling and was diagnosed with cellulitis. During that time he also had x-rays that showed psoriatic arthropathy. He had a negative SALOME and negative RF factor negative mono screen however his CRP was elevated at 34 and his sed rate was elevated at 110. Today on physical exam patient has multiple erythematous nodules that are diffuse in both of his extremities and abdomen and back. He is afebrile and otherwise well-appearing. Patient was tachycardic at 116. I have low suspicion that this is an allergic reaction. There is no evidence of anaphylaxis or angioedema. Patient's oxygen saturation is 98%. He is talking. Low suspicion for insect bites although patient did state that the area was itchy as well as painful. Patient symptoms at this time especially given his evidence of psoriatic arthropathy in the past may be related to erythema nodosum or other rheumatologic condition. I have explained this to the patient and the cousin. I have explained to him that he does need to follow-up with a house painter. Cousin stated that they were waiting on a primary care doctor and possible referral. They were given a list of resources. I did have the patient seen and evaluated by Dr. Guerrero and he is in agreement and recommend that the patient be given prednisone here in the emergency department. He was also given a short course for home as well as Benadryl. He did not feel the patient requires laboratory workup at this time. Low suspicion for Celestin-Jus, meningitis, TEN, cellulitis, sepsis, deep space infection. At this time the patient is stable for discharge and outpatient management. Patient should follow up with their PCP in the next 1-2 days. They may return to the emergency department sooner for any persistent or worsening of symptoms. Patient and cousin understood and agreed with the plan. Departure Diagnosis: Primary Impression: Rash Condition: Fair Patient Instructions: Self-Care for Skin Rashes Referrals: HOLLIS LOWRY,JOSE DOE,RITO LAO MD,PAOLA IYER,PATRICIA SLATER,WALT MAN,MARIELENA LUNDBERG,IRVIN Cruz M.D. [facility] YOU HAVE RECEIVED A MEDICAL SCREENING EXAM AND THE RESULTS INDICATE THAT YOU DO NOT HAVE A CONDITION THAT REQUIRES URGENT TREATMENT IN THE EMERGENCY DEPARTMENT. FURTHER EVALUATION AND TREATMENT OF YOUR CONDITION CAN WAIT UNTIL YOU ARE SEEN IN YOUR DOCTORS OFFICE WITHIN THE NEXT 1-2 DAYS. IT IS YOUR RESPONSIBILITY TO MAKE AN APPOINTMENT FOR FOLOW-UP CARE. IF YOU HAVE A PRIMARY DOCTOR --you should call your primary doctor and schedule an appointment IF YOU DO NOT HAVE A PRIMARY DOCTOR YOU CAN CALL OUR PHYSICIAN REFERRAL HOTLINE AT IF YOU CAN NOT AFFORD TO SEE A PHYSICIAN YOU CAN CHOSE FROM THE FOLLOWING [facility] [address] [facility] [facility] [address] [facility] [facility] [address] [facility] [facility] [address] [facility]. [facility] [address] [facility]. [facility]. [address] Additional Instructions: Call your primary care doctor TOMORROW for an appointment during the next 1-2 days.See the doctor sooner or return here if your condition worsens before your appointment time. Make an appointment with leasing specialist Take prednisone as prescribed Take Benadryl for itching GA BOOGIE PA-C Feb 04, 2017 15:42
== END 2017-02-04 10:31 | disposition home or self-care (01) ==
LOC: FTE 09:18
DX: R21 Rash and other nonspecific skin eruption (principal)
CPT/HCPCS: J7512; Z7502; 99283